=== PATIENT | male | born 1965 | race Asian ===

== ENCOUNTER 2024-03-28 19:15 | Inpatient (IN) | payer OTHER ==
[~2024-03-28] VITALS: Ht 170.2 cm; Wt 55.3 kg
[2024-03-28 19:23] VITALS: TEMP 99.1
[2024-03-28] MEDS ORDERED: SODIUM CHLORIDE FLUSH 10 ML SYR INJ PRN (20:45)
[2024-03-28 21:08] VITALS: PULSE 73; RESP 16
[2024-03-28] MEDS: FAMOTIDINE 20 MG/2 ML VIAL IV SCH (21:08)
[2024-03-28 22:07] VITALS: BP 130/89; PULSE 72; RESP 16; TEMP 98.1; O2SAT 100
[2024-03-28] MEDS ORDERED: DIPHENHYDRAMINE HCL INJ 50 MG/ML VIAL IV PRN (22:30)
[2024-03-28] MEDS ORDERED: ENALAPRILAT IV INJ 1.25 MG/ML VIAL IV PRN (22:30)
[2024-03-29] VITALS (14 sets, daily range): BP systolic 98–130; BP diastolic 70–89; PULSE 72–103; RESP 16–19; TEMP 98.1–99.5; O2SAT 97–100
[2024-03-29] MEDS: SIMVASTATIN 20 MG TAB PO SCH (00:24)
[2024-03-29 02:13] LABS: CREATINE KINASE 85 IU/L (30-200)
[2024-03-29 02:39] LABS: TROPONIN I < 0.001 ng/mL (0-0.300)
[2024-03-29 05:57] LABS: BASOPHILS % 0.4 % (0.0-1.0); EOSINOPHILS # (AUTO) 0.1 (0.0-0.4); EOSINOPHILS % 2.5 % (0.0-6.0); HEMATOCRIT 46.5 % (38.2-49.6); HEMOGLOBIN 15.4 g/dL (14.0-18.0); LYMPHOCYTES # (AUTO) 1.6 (1.0-3.2); MEAN CORPUSCULAR HEMOGLOBIN 28.5 pg (28-32); MEAN CORPUSCULAR HGB CONC 33.1 g/dL (31-35); MEAN CORPUSCULAR VOLUME 86.1 fL (81-99); MONOCYTES # (AUTO) 0.4 (0.2-0.8); MONOCYTES % 7.7 % (4.4-11.3); NEUTROPHILS % 58.2 % (38.7-80.0); PLATELET COUNT 178 x10e3/uL (140-360)
[2024-03-29] MEDS ORDERED: AMLODIPINE BESYL5 MG (06:08)
[2024-03-29] MEDS ORDERED: VITAMIN (06:08)
[2024-03-29 06:31] LABS: CREATINE KINASE 81 IU/L (30-200)
[2024-03-29 06:40] LABS: TROPONIN I < 0.001 ng/mL (0-0.300)
[2024-03-29 06:57] LABS: ANION GAP 12.9 mmol/L (8-16); CALCIUM 9.1 mg/dL (8.4-10.2); CHOL/HDL RATIO 3.5 (3.9-4.7); CREATININE, SERUM 0.84 mg/dL (0.72-1.25); POTASSIUM 3.9 mmol/L (3.5-5.1)
[2024-03-29 07:22] LABS: T4 (THYROXINE) 6.21 ug/dL (4.5-10.9); THYROID STIMULATING HORMONE 1.092 uIU/mL (0.350-4.940)
[2024-03-29] MEDS: VALSARTAN 160 MG TAB PO SCH (08:55)
[2024-03-29] MEDS: ASPIRIN 81 MG ENTERIC COATED PO SCH (08:56)
[2024-03-29 10:45] LABS: FOLATE 13.1 ng/mL (7.0-15.4)
[2024-03-29 17:14] LABS: HEPATITIS B SURFACE AG (P) Non Reactive; HEPATITIS C ANTIBODY Non Reactive
[2024-03-29] MEDS ORDERED: IOPAMIDOL 370 MG/ML 100 ML INFUS..BTL INJ ONE (18:48)
[2024-03-29] MEDS: ZOLPIDEM TARTRATE 5 MG TAB PO PRN (20:41)
[2024-03-30] VITALS (10 sets, daily range): BP systolic 105–114; BP diastolic 60–78; PULSE 64–77; RESP 16–17; TEMP 97.5–98.2; O2SAT 100
[2024-03-31] VITALS: BP 119/81; PULSE 69; RESP 17; TEMP 98.4; O2SAT 98
[2024-03-31 05:43] VITALS: BP_SYST 118; BP_SYST 119; BP_DIAS 82; BP_DIAS 88; PULSE 72; PULSE 89; RESP 16; TEMP 97.8; O2SAT 100
[2024-03-31 05:44] VITALS: BP 130/88; PULSE 101
[2024-03-31 08:00] VITALS: BP 139/88; PULSE 81; RESP 16; TEMP 97.8; O2SAT 100
[2024-03-31 08:10] VITALS: BP 139/88; PULSE 81; RESP 16; TEMP 98.8; O2SAT 99
== END 2024-03-31 09:56 | disposition home or self-care (01) | DRG 312 ==
LOC: FSED 19:19 → ERHOLD 20:39 → MED/SURG3 22:22 → OBSVTOIN 03-29 09:52
PROVIDERS: ADMIT Internal Medicine; ATTEND Internal Medicine
DX: I95.2 Hypotension due to drugs (principal); R64 Cachexia; R63.6 Underweight; Z68.1 Body mass index [BMI] 19.9 or less, adult; T46.5X5A Adverse effect of other antihypertensive drugs, initial encounter; R53.81 Other malaise; R00.2 Palpitations; R07.89 Other chest pain; Z11.52 Encounter for screening for COVID-19; F41.0 Panic disorder [episodic paroxysmal anxiety]
CPT/HCPCS: 36415; 71046; 71260; 74177; 80048; 80053; 80061; 82550; 82553; 82607; 82746; 83880; 84436; 84443; 84484; 85025; 86039; 93005; 93306; 93880; 99284; G0378; Q9967; U0002